=== PATIENT | female | born 1965 | race Caucasian/White ===

== ENCOUNTER 2020-05-31 15:49 | Outpatient (CLI) | payer MEDICARE, SELFPAY ==
--- NOTE | 2020-05-31 | CT_ITS ---
WS: [id number] CT CHEST WITHOUT INTRAVENOUS CONTRAST HISTORY: CHEST PAIN PLEURITIC, history of rectal cancer. TECHNIQUE: Contiguous 5 mm axial imaging performed on the thorax. Coronal and sagittal reformats are submitted. All CT scans at [facility] use at least one of these dose optimization techniq ues: automated exposure control; mA and/or kV adjustment per patient size (includes targeted exams wh ere dose is matched to clinical indication); or iterative reconstruction. CONTRAST: None DLP: 635.82 mGycm COMPARISON: PET CT 05/25/2017 Lungs and central airway: Lung volumes are decreased. There are numerous pulmonary nodules of various sizes scattered throughout the lungs. There is a conglomerate mass with calcifications centered at t he RIGHT hilum measuring 3.4 x 4.3 cm. Additional mass within the anterior RIGHT lower lobe measures 3.2 x 2.0 cm. Large conglomerate mass with calcification and spiculated margins in the LEFT lower lob e measures 3.4 x 3.5 cm. There are additional smaller nodules ranging in size from a few millimeters to just over centimeters in all lobes. Metastatic nodules were described on a prior PET/CT from 018. No interval studies to evaluate for resolution or progression. Small lymph nodes along the aorta. Mild atherosclerosis aorta. Pulmonary artery is slightly enlarged. There is partial narrowing and irregularity involving the bronchovascular bundle RIGHT upper lobe an d LEFT lower lobes. Pleura: No effusions. Heart and pericardium: Normal size heart with a few scattered calcifications. Chest wall and lower neck: No soft tissue masses. Upper abdomen: Prior cholecystectomy. Hepatic steatosis. Osseous structures: Abnormal appearance of the RIGHT humeral head. CT/CT chest wo con [id number] IMPRESSION: 1. Bilateral conglomerate pulmonary masses and numerous pulmonary nodules. Sim ilar findings were present on 05/25/2017 but the disease has probably progressed. No interval examinations to evaluate for resolution or progression. 2. Partial narrowing with partial atelectasis of the LEFT lower lobe and RIGHT upper lobe due to conglomerate central masses. 3. Hepatic steatosis. 4. Prior cholecystectomy. Notified Billy Dahl DO at 05/31/2020 4:[address] Dahl was not availab le. Spoke with Dr. Carrasquillo. Discussed with patient the findings. Mrs. Bennett is going to see her doctor in [place] tomorrow. Disc and report will be given to the patient. If patient's symptoms progress or she feels worse she has been directed to the emergency department.
== END 2020-05-31 15:50 | disposition home or self-care (01) ==
LOC: RADWPI 15:55
PROVIDERS: PCP Electrodiagnostic Medicine; Visit Provider Electrodiagnostic Medicine
DX: R07.89 Other chest pain (principal); R06.02 Shortness of breath; R06.00 Dyspnea, unspecified; C20 Malignant neoplasm of rectum; Z90.49 Acquired absence of other specified parts of digestive tract; K76.0 Fatty (change of) liver, not elsewhere classified; R91.8 Other nonspecific abnormal finding of lung field
CPT/HCPCS: 71250